=== PATIENT | male | born 1965 | race Caucasian/White ===

== ENCOUNTER 2017-08-16 14:42 | Inpatient (IN) | payer OTHER ==
[2017-08-16] MEDS: LACTATED RINGER'S 1L BAG IV* (16:30)
[2017-08-16] MEDS: CEFAZOLIN 2 GM/50 ML (PMX) 50 ML IVPB (16:30)
[2017-08-16] MEDS ORDERED: CEPASTAT LOZENGE MT (18:00)
[2017-08-16] MEDS ORDERED: BISACODYL 10 MG SUPP PR (18:00)
[2017-08-16] MEDS ORDERED: HYDROmorphONE 0.5 MG/0.5 ML SYG IV (18:00)
[2017-08-16] MEDS ORDERED: ACETAMINOPHEN 325 MG TAB PO (18:00)
[2017-08-16] MEDS ORDERED: CYCLOBENZAPRINE 10 MG TAB PO (18:00)
[2017-08-16] MEDS ORDERED: NALOXONE (0.4 MG/ML) INJ IV (18:00)
[2017-08-16] MEDS ORDERED: AL HYDROX/MG HYDROX/SIMETH 30 ML CUP PO (18:00)
[2017-08-16] MEDS: CEFAZOLIN 1 GM/50 ML (PMX) 50 ML IVPB (18:00)
[2017-08-16] MEDS ORDERED: ZOLPIDEM 5 MG TAB PO (18:00)
[2017-08-16] MEDS ORDERED: ONDANSETRON 4 MG INJ IV (18:00)
[2017-08-16] MEDS ORDERED: POLYMYXIN/BACITRACIN 1L IRRIG (18:11)
[2017-08-16] MEDS ORDERED: FENTAnyl 50 MCG/ML VIAL (18:31)
[2017-08-16] MEDS ORDERED: PROPOFOL 20 ML (19:20)
[2017-08-16] MEDS ORDERED: CEFAZOLIN 1 GM INJ (19:20)
[2017-08-16] MEDS ORDERED: LIDOCAINE 100 MG SYRINGE (19:20)
[2017-08-16] MEDS ORDERED: SUCCINYLCHOLINE CHLORIDE 100 MG/5 ML SYG IV (19:20)
[2017-08-16] MEDS ORDERED: ROCURONIUM 50 MG INJ (19:20)
[2017-08-16] MEDS ORDERED: SUGAMMADEX SODIUM 200 MG/2 ML VIAL IV (19:21)
[2017-08-16] MEDS ORDERED: DEXAMETHASONE 4 MG/ML 1 ML INJ (19:21)
[2017-08-16] MEDS: BUPIVACAINE 0.5%/EPI (SDV) 30 ML INJ (19:32)
[2017-08-16] MEDS: THROMBIN 5000 UNIT VIAL (19:33)
[2017-08-16] MEDS: SURGIFOAM POWDER 1 GM KIT (19:33)
[2017-08-16] MEDS ORDERED: MEPERIDINE 25 MG INJ IV (20:00)
[2017-08-16] MEDS ORDERED: DIPHENHYDRAMINE 50 MG INJ IV (20:00)
[2017-08-16] MEDS ORDERED: FENTAnyl 50 MCG/ML VIAL IV ×3 (20:00)
[2017-08-16] MEDS ORDERED: HYDROmorphONE (0.2 MG/ML) 10ML SYG IV ×3 (20:00)
[2017-08-16] MEDS: GELATIN SIZE 100 SPONGE (20:04)
[2017-08-16] MEDS: DOCUSATE SODIUM 100 MG CAP PO (21:00)
[2017-08-16] MEDS: HYDROmorphONE 0.2 MG/ML PCA IV (23:11)
[2017-08-17] MEDS: D5W-0.45 NACL + KCL 20 MEQ 1,000 ML IV ×3 (00:24→13:14)
[2017-08-17] MEDS: CEFAZOLIN 1 GM/50 ML (PMX) 50 ML IVPB ×2 (01:22→09:33)
[2017-08-17] MEDS: DIPHENHYDRAMINE 50 MG INJ IV ×2 (05:06→13:14)
[2017-08-17 05:44] LABS: ADD MAN DIFF? NO
[2017-08-17 05:48] LABS: BASOPHILS % 0.2 % (0.0-2.0); HEMATOCRIT 42.2 % (42.0-52.0); HEMOGLOBIN 13.9 g/dl (14.0-18.0); LYMPHOCYTES # 1.1 10^3/ul (0.8-2.9); MEAN CORPUSCULAR HEMOGLOBIN 28.8 pg (29.0-33.0); MEAN CORPUSCULAR HGB CONC 32.9 g/dl (32.0-37.0); MEAN CORPUSCULAR VOLUME 87.6 fl (82.0-101.0); MEAN PLATELET VOLUME 9.5 fl (7.4-10.4); MONOCYTE # 0.4 10^3/ul (0.3-0.9); MONOCYTES % 3.8 % (0.0-11.0); NEUTROPHIL # 7.7 10^3/ul (1.6-7.5); NEUTROPHILS % 83.4 % (39.0-77.0); PLATELET COUNT 326 10^3/UL (140-415); RED BLOOD COUNT 4.82 10^6/ul (4.70-6.10); RED CELL DISTRIBUTION WIDTH 12.4 % (11.5-14.5)
[2017-08-17 05:48] LABS: WHITE BLOOD COUNT 9.2 10^3/ul (4.8-10.8)
[2017-08-17 06:28] LABS: ANION GAP 14 (8-16); BLOOD UREA NITROGEN 20 mg/dl (7-20); CALCIUM 9.3 mg/dl (8.4-10.2); CARBON DIOXIDE 27 mmol/L (21-31); CHLORIDE 104 mmol/L (97-110); GLUCOSE 163 mg/dl (70-220); POTASSIUM 4.2 mmol/L (3.5-5.1); SODIUM 141 mmol/L (135-144)
[2017-08-17] MEDS: DOCUSATE SODIUM 100 MG CAP PO ×2 (08:18→20:49)
[2017-08-17] MEDS: HYDROCODONE/APAP (10/325) TAB PO (15:23)
[2017-08-18] MEDS: HYDROCODONE/APAP (10/325) TAB PO ×2 (00:28→07:00)
[2017-08-18] MEDS: DIPHENHYDRAMINE 50 MG INJ IV (02:54)
[2017-08-18 05:22] LABS: ADD MAN DIFF? NO
[2017-08-18 05:27] LABS: WHITE BLOOD COUNT 11.6 10^3/ul (4.8-10.8)
[2017-08-18 05:27] LABS: BASOPHIL # 0.1 10^3/ul (0.0-0.1); BASOPHILS % 0.5 % (0.0-2.0); EOSINOPHILS # 0.1 10^3/ul (0.0-0.5); EOSINOPHILS % 0.5 % (0.0-7.0); HEMATOCRIT 37.6 % (42.0-52.0); HEMOGLOBIN 12.5 g/dl (14.0-18.0); LYMPHOCYTES # 3.1 10^3/ul (0.8-2.9); LYMPHOCYTES % 26.4 % (15.0-51.0); MEAN CORPUSCULAR HEMOGLOBIN 29.4 pg (29.0-33.0); MEAN CORPUSCULAR HGB CONC 33.2 g/dl (32.0-37.0); MEAN CORPUSCULAR VOLUME 88.5 fl (82.0-101.0); MEAN PLATELET VOLUME 9.6 fl (7.4-10.4); MONOCYTE # 1.5 10^3/ul (0.3-0.9); MONOCYTES % 12.9 % (0.0-11.0); NEUTROPHIL # 6.9 10^3/ul (1.6-7.5); NEUTROPHILS % 59.2 % (39.0-77.0); NUCLEATED RED BLOOD CELLS% 0.2 /100WBC (0.0-0.0); PLATELET COUNT 291 10^3/UL (140-415); RED BLOOD COUNT 4.25 10^6/ul (4.70-6.10); RED CELL DISTRIBUTION WIDTH 12.9 % (11.5-14.5)
[2017-08-18 05:44] LABS: ANION GAP 14 (8-16); BLOOD UREA NITROGEN 18 mg/dl (7-20); CARBON DIOXIDE 30 mmol/L (21-31); CHLORIDE 104 mmol/L (97-110); CREATININE 1.11 mg/dl (0.61-1.24); GLUCOSE 102 mg/dl (70-220); MAGNESIUM 2.1 mg/dl (1.7-2.5); POTASSIUM 4.1 mmol/L (3.5-5.1); SODIUM 144 mmol/L (135-144)
[2017-08-18] MEDS: DOCUSATE SODIUM 100 MG CAP PO (08:31)
== END 2017-08-18 13:18 | disposition home or self-care (01) | DRG 473 ==
LOC: REC 14:42 → MS1 08-17 00:05
PROC: 0RG20A0 Fusion of 2 or more Cervical Vertebral Joints with Interbody Fusion Device, Anterior Approach, Anterior Column, Open Approach (ICD-10-PCS; principal; 2017-08-16 17:00)
PROC: 0RB30ZZ Excision of Cervical Vertebral Disc, Open Approach (ICD-10-PCS; 2017-08-16 17:00)
DX: M50.022 Cervical disc disorder at C5-C6 level with myelopathy (principal); M48.02 Spinal stenosis, cervical region; I10 Essential (primary) hypertension; J45.909 Unspecified asthma, uncomplicated; E78.00 Pure hypercholesterolemia, unspecified
CPT/HCPCS: 72052; 80048; 83735; 85025; 86999; 87086; 97116; 97162; 97530